=== PATIENT | male | born 1935 | race African-American/Black ===

== ENCOUNTER 2021-02-04 11:26 | Inpatient (IN) | payer OTHER ==
[~2021-02-04] VITALS: Ht 167.6 cm; Wt 59.9 kg
[2021-02-04] MEDS ORDERED: SODIUM CHLORIDE 0.9% 1,000 ML IV ONE (12:45)
[2021-02-04 13:46] LABS: CLARITY URINE CLEAR (CLEAR); COLOR URINE YELLOW (YELLOW); KETONES URINE NEGATIVE (NEGATIVE); LEUKOCYTE ESTERASE URINE NEGATIVE (NEGATIVE); NITRITE URINE NEGATIVE (NEGATIVE); OCCULT BLOOD URINE NEGATIVE (NEGATIVE); PROTEIN URINE NEGATIVE (NEGATIVE); SPECIFIC GRAVITY URINE 1.025 (1.005-1.030); UROBILINOGEN URINE 0.2 E.U./dL (0.2-1.0)
[2021-02-04 13:57] LABS: CANNABINOID URINE SCREEN PRESUMTIVE POSITIVE (NEGATIVE); OPIATES URINE SCREEN NEGATIVE (NEGATIVE)
[2021-02-04 13:58] LABS: *AMPHETAMINES SCREEN URINE NEGATIVE (NEGATIVE); *BARBITURATES SCREEN URINE NEGATIVE (NEGATIVE); PHENCYCLIDINE URINE SCREEN NEGATIVE (NEGATIVE)
[2021-02-04 13:59] LABS: *COCAINE SCREEN URINE NEGATIVE (NEGATIVE); METHADONE URINE SCREEN NEGATIVE (NEGATIVE)
[2021-02-04 14:04] LABS: *BENZODIAZEPINES SCREEN URINE NEGATIVE (NEGATIVE)
[2021-02-04 14:22] LABS: BASOPHILS % 0.9 % (0.0-2.0); EOSINOPHILS % 5.2 % (0.0-5.0); HEMATOCRIT. 33.9 % (42.0-52.0); LYMPHOCYTES % 9.3 % (20.0-50.0); MEAN CORPUSCULAR HEMOGLOBIN 29.4 pg (28.0-32.0); MEAN CORPUSCULAR VOLUME 90.3 fL (80.0-94.0); MEAN PLATELET VOLUME 9.1 fl (7.4-10.4); MONOCYTES % 8.6 % (2.0-8.0); PLATELET 334 x1000/uL (130-400); RED BLOOD CELL COUNT 3.75 mill/uL (4.7-6.1); RED CELL DISTRIBUTION WIDTH 14.6 % (11.6-14.6)
[2021-02-04 14:37] LABS: CHLORIDE 112 mEq/L (98-107)
[2021-02-04 14:41] LABS: ETHANOL BLOOD < 10 mg/dL
[2021-02-04 14:45] LABS: CREATINE KINASE 138 IU/L (39-308)
[2021-02-04] MEDS ORDERED: ZOLPIDEM TARTRATE 5MG TABLET PO PRN (18:30)
[2021-02-04] MEDS ORDERED: GUAIFENESIN 200MG/10ML SUGAR FREE UDC PO PRN (18:30)
[2021-02-04] MEDS ORDERED: NITROGLYCERIN 0.4MG TABLET SL SL PRN (18:30)
[2021-02-04] MEDS ORDERED: ACETAMINOPHEN 325MG TABLET PO PRN ×2 (18:30)
[2021-02-04] MEDS ORDERED: DOCUSATE SODIUM 100MG CAPSULE PO PRN (18:30)
[2021-02-04] MEDS ORDERED: IPRATROPIUM/ALBUTEROL 0.5-3(2.5)MG/3ML NEB NEB PRN (18:30)
[2021-02-04] MEDS ORDERED: ONDANSETRON HCL 4MG/2ML INJ IV PRN (18:30)
[2021-02-04] MEDS ORDERED: CLONIDINE 0.1MG TABLET PO PRN (18:30)
[2021-02-04] MEDS ORDERED: MAGNESIUM/ALUMINUM HYDROXIDE/SIMETHICONE 30ML UDC PO PRN (18:30)
[2021-02-04 19:34] LABS: FOLIC ACID (FOLATE) SERUM >20 ng/mL ng/mL (>5.38)
[2021-02-04 19:46] LABS: VITAMIN B12 SERUM 236 pg/mL (211-911)
[2021-02-04 20:30] VITALS: BP 154/87
[2021-02-04 20:45] VITALS: BP 154/87
[2021-02-04] MEDS ORDERED: FAMOTIDINE 20MG TABLET PO SCH (21:00)
[2021-02-04] MEDS: ENOXAPARIN 40MG/0.4ML SYR SUBCUT SCH (21:27)
[2021-02-04] MEDS: ASCORBIC ACID 500 MG TABLET PO SCH (21:27)
[2021-02-04] MEDS: FAMOTIDINE 20MG TABLET PO SCH (21:27)
[2021-02-04] MEDS ORDERED: DEXTROSE 50% WATER 50ML SYRINGE IV PRN (22:15)
[2021-02-04] MEDS: CEFTRIAXONE 1,000 MG in DEXTROSE 5% WATER 50 ML IV SCH (23:13)
[2021-02-04] MEDS ORDERED: PNEUMOCOCCAL 23-VAL P-SAC VAC 0.5 ML IM ONE (23:15)
[2021-02-04 23:54] LABS: CREATINE KINASE 145 IU/L (39-308)
[2021-02-04 23:56] LABS: CREATINE KINASE MB FRACTION 1.4 ng/mL (0.5-3.6)
[2021-02-04] MEDS ORDERED: ATOR-2 PO (23:58)
[2021-02-04] MEDS ORDERED: ASPI-1406 PO (23:58)
[2021-02-04] MEDS ORDERED: ERGO2000 PO (23:58)
[2021-02-04] MEDS ORDERED: FLUO10CA28 PO (23:58)
[2021-02-04] MEDS ORDERED: METO-385 PO (23:58)
[2021-02-04] MEDS ORDERED: CLOP75TA33 PO (23:58)
[2021-02-04] MEDS ORDERED: FINA5TAB11 PO (23:58)
[2021-02-04] MEDS ORDERED: LINA5TAB PO (23:58)
[2021-02-04] MEDS ORDERED: HYDR-4135 PO (23:58)
[2021-02-04] MEDS ORDERED: LISI-186 PO (23:58)
[2021-02-04] MEDS ORDERED: FOLI-43 PO (23:58)
[2021-02-04] MEDS ORDERED: DOXA1TAB PO (23:58)
[2021-02-04] MEDS ORDERED: AMLO10TA80 PO (23:58)
[2021-02-05] VITALS: BP_SYST 76
[2021-02-05] MEDS: AZITHROMYCIN 500 MG in DEXT 5% WATER 250 ML IV SCH ×2 (00:01→23:36)
[2021-02-05 04:00] VITALS: BP 144/48
[2021-02-05] MEDS: BLOOD SUGAR DIAGNOSTIC STRIP TEST SCH ×4 (06:40→20:28)
[2021-02-05] MEDS: INSULIN LISPRO 100 UNITS/ML SUBCUT SCH ×4 (06:40→20:28)
[2021-02-05 08:00] VITALS: BP 140/65
[2021-02-05] MEDS ORDERED: CEFTRIAXONE 1 G PREMIX 50 ML IV SCH (09:00)
[2021-02-05 09:36] LABS: BASOPHILS % 0.9 % (0.0-2.0); EOSINOPHILS % 9.4 % (0.0-5.0); HEMATOCRIT. 36.2 % (42.0-52.0); HEMOGLOBIN. 11.9 g/dL (14.0-18.0); LYMPHOCYTES % 15.3 % (20.0-50.0); MEAN CORPUSCULAR HEMOGLOBIN 29.7 pg (28.0-32.0); MEAN CORPUSCULAR VOLUME 90.2 fL (80.0-94.0); MEAN PLATELET VOLUME 9.4 fl (7.4-10.4); MONOCYTES % 11.2 % (2.0-8.0); NEUTROPHILS % 63.2 % (40.0-76.0); PLATELET 362 x1000/uL (130-400); RED BLOOD CELL COUNT 4.02 mill/uL (4.7-6.1); RED CELL DISTRIBUTION WIDTH 14.4 % (11.6-14.6)
[2021-02-05 09:45] LABS: CHLORIDE 108 mEq/L (98-107)
[2021-02-05] MEDS: ASCORBIC ACID 500 MG TABLET PO SCH ×2 (09:51→20:28)
[2021-02-05] MEDS: CHOLECALCIFEROL (D3) 1000 UNIT TABLET PO SCH (09:51)
[2021-02-05] MEDS: ZINC SULFATE 220 MG ( 50 ) CAPSULE PO SCH (09:51)
[2021-02-05 09:56] LABS: PHOSPHORUS 2.4 mg/dL (2.5-4.9)
[2021-02-05 10:01] LABS: CREATINE KINASE MB FRACTION < 1.0 ng/mL (0.5-3.6)
[2021-02-05 12:00] VITALS: BP 144/60
[2021-02-05] MEDS ORDERED: IOHEXOL-350 100 ML BOTTLE ONE (15:14)
[2021-02-05 16:00] VITALS: BP 142/83
[2021-02-05 20:00] VITALS: BP 100/59
[2021-02-05] MEDS: CEFTRIAXONE 1,000 MG in DEXTROSE 5% WATER 50 ML IV SCH (20:27)
[2021-02-05] MEDS: FAMOTIDINE 20MG TABLET PO SCH (20:28)
[2021-02-05] MEDS: ENOXAPARIN 40MG/0.4ML SYR SUBCUT SCH (20:28)
[2021-02-06] VITALS: BP 103/80
[2021-02-06 04:00] VITALS: BP 148/74
[2021-02-06] MEDS: BLOOD SUGAR DIAGNOSTIC STRIP TEST SCH ×3 (05:55→17:35)
[2021-02-06] MEDS: INSULIN LISPRO 100 UNITS/ML SUBCUT SCH ×3 (06:43→17:10)
[2021-02-06 08:00] VITALS: BP 117/67
[2021-02-06] MEDS: ZINC SULFATE 220 MG ( 50 ) CAPSULE PO SCH (08:47)
[2021-02-06] MEDS: ASCORBIC ACID 500 MG TABLET PO SCH (08:47)
[2021-02-06] MEDS: CHOLECALCIFEROL (D3) 1000 UNIT TABLET PO SCH (08:47)
[2021-02-06] MEDS ORDERED: POTASSIUM PHOS,M-BASIC-D-BASIC 15 MMOL in DEXT 5% WATER 245 ML IV SCH (09:00)
[2021-02-06 12:00] VITALS: BP 161/74
[2021-02-06 16:00] VITALS: BP 137/70
[2021-02-06 17:38] VITALS: BP 137/70
[2021-02-06] MEDS ORDERED: AZITHROMYCIN 500 MG TABLET PO SCH (21:00)
== END 2021-02-06 19:05 | disposition home or self-care (01) | DRG 871 ==
LOC: ER 11:26 → 7EST 17:34 → SUPCPDRO 18:13 → ENRESERV 19:08 → 7EST 20:21
PROVIDERS: ADMIT Internal Medicine; ATTEND Internal Medicine
DX: A41.9 Sepsis, unspecified organism (principal); N17.0 Acute kidney failure with tubular necrosis; R65.20 Severe sepsis without septic shock; I95.2 Hypotension due to drugs; F12.90 Cannabis use, unspecified, uncomplicated; E83.51 Hypocalcemia; I10 Essential (primary) hypertension; G90.8 Other disorders of autonomic nervous system; E11.9 Type 2 diabetes mellitus without complications; D64.9 Anemia, unspecified; T46.5X5A Adverse effect of other antihypertensive drugs, initial encounter; Y92.89 Other specified places as the place of occurrence of the external cause; Z79.4 Long term (current) use of insulin
CPT/HCPCS: 36415; 71045; 71275; 80053; 80305; 80320; 81003; 82550; 82553; 82607; 82746; 82962; 83036; 83540; 83550; 83605; 83735; 84100; 84132; 84443; 84484; 85025; 85379; 90732; 93005; 93306; 93970; 99285; J0456; J0696; J1650; J3490; J7030; J7060; Q9967; G0480

== ENCOUNTER 2022-01-21 22:38 | Emergency (ER) | payer MEDICAID, OTHER ==
[~2022-01-21] VITALS: Ht 165.1 cm; Wt 60.0 kg
[~2022-01-21 22:38] MED LIST: AMLO10TA80 PO; ASPI-1406 PO; ATOR-2 PO; CLOP75TA33 PO; DOXA1TAB PO; ERGO2000 PO; FINA5TAB11 PO; FLUO10CA28 PO; FOLI-43 PO; LINA5TAB PO
[2022-01-21] MEDS ORDERED: DEXTROMETHORPHAN (22:52)
[2022-01-21] MEDS ORDERED: TOPUD PO (22:52)
[2022-01-21] MEDS ORDERED: FLUO10CA28 PO (22:52)
[2022-01-21] MEDS ORDERED: LINA5TAB PO (22:52)
[2022-01-21] MEDS ORDERED: AZIT250T12 PO (22:52)
[2022-01-21] MEDS ORDERED: PROMETHAZINE (22:52)
[2022-01-22] MEDS ORDERED: SODIUM CHLORIDE 0.9% 1,000 ML IV ONE (00:30)
[2022-01-22 00:44] LABS: CHLORIDE 106 mEq/L (98-107)
[2022-01-22 00:45] LABS: BASOPHILS % 0.4 % (0.0-2.0); EOSINOPHILS % 5.8 % (0.0-5.0); HEMATOCRIT. 33.6 % (42.0-52.0); LYMPHOCYTES % 13.2 % (20.0-50.0); MEAN CORPUSCULAR HEMOGLOBIN 28.5 pg (28.0-32.0); MEAN CORPUSCULAR VOLUME 86.8 fL (80.0-94.0); MEAN PLATELET VOLUME 8.7 fl (7.4-10.4); MONOCYTES % 8.3 % (2.0-8.0); NEUTROPHILS % 72.3 % (40.0-76.0); PLATELET 488 x1000/uL (130-400); RED BLOOD CELL COUNT 3.87 mill/uL (4.7-6.1); RED CELL DISTRIBUTION WIDTH 16.8 % (11.6-14.6)
[2022-01-22 07:08] VITALS: BP 155/92
== END 2022-01-22 06:48 | disposition home or self-care (01) ==
LOC: ER 22:51
DX: U07.1 COVID-19 (principal); I10 Essential (primary) hypertension; E11.9 Type 2 diabetes mellitus without complications
CPT/HCPCS: 36415; 71045; 80053; 83690; 85025; 87426; 93005; 96360; 96361; 99285; C9803

== ENCOUNTER 2022-02-07 01:40 | Inpatient (IN) | payer OTHER, MEDICAID ==
[~2022-02-07] VITALS: Ht 165.1 cm; Wt 54.4 kg
[~2022-02-07 01:40] MED LIST changes: +AZIT250T12 PO; +DEXTROMETHORPHAN; +PROMETHAZINE; +TOPUD PO
[2022-02-07] MEDS ORDERED: IPRATROPIUM BROMIDE (0.02%) 0.5MG/2.5ML NEB HHN STA (02:07)
[2022-02-07] MEDS ORDERED: METHYLPREDNISOLONE SOD SUCC 125 MG/2 ML VIAL IV STA (02:07)
[2022-02-07 02:27] LABS: BASOPHILS % 0.7 % (0.0-2.0); EOSINOPHILS % 1.7 % (0.0-5.0); HEMATOCRIT. 34.4 % (42.0-52.0); HEMOGLOBIN. 11.2 g/dL (14.0-18.0); LYMPHOCYTES % 13.6 % (20.0-50.0); MEAN CORPUSCULAR HEMOGLOBIN 28.6 pg (28.0-32.0); MEAN CORPUSCULAR VOLUME 87.9 fL (80.0-94.0); MEAN PLATELET VOLUME 9.1 fl (7.4-10.4); PLATELET 468 x1000/uL (130-400); RED BLOOD CELL COUNT 3.92 mill/uL (4.7-6.1); RED CELL DISTRIBUTION WIDTH 18.2 % (11.6-14.6)
[2022-02-07] MEDS: ALBUTEROL (0.083%) 2.5MG/3ML NEB HHN SCH (02:33)
[2022-02-07 02:38] LABS: BG BASE EXCESS -3.1 mmol/L (-2.0-2.0); BG CARBOXYHEMOGLOBIN 0.3 % (0.5-1.5); BG DEOXYHEMOGLOBIN 2.1 % (0.0-5.0); BG FRACTION INSPIRED OXYGEN 28; BG METHEMOGLOBIN 0.3 % (0.0-1.5); BG OXYGEN SATURATION 97.9 % (92.0-98.5); BG OXYHEMOGLOBIN 97.3 % (94.0-97.0); BG PH 7.408 (7.350-7.450); BG PO2 109.1 mmHg (75.0-100.0); BG SAMPLE SITE RIGHT RADIAL; BG TOTAL HEMOGLOBIN 10.9 g/dL (12.0-18.0); BG VENT MODE NASAL CANNULA
[2022-02-07 02:52] LABS: CHLORIDE 109 mEq/L (98-107)
[2022-02-07] MEDS ORDERED: IOHEXOL-350 100 ML BOTTLE ONE (05:42)
[2022-02-07] MEDS ORDERED: METHYLPREDNISOLONE SOD SUCC 125 MG/2 ML VIAL IV NR (07:00)
[2022-02-07 10:00] VITALS: BP 144/90
[2022-02-07 10:30] VITALS: BP 159/91
[2022-02-07 12:00] VITALS: BP 151/89
[2022-02-07] MEDS ORDERED: ONDANSETRON HCL 4MG/2ML INJ IV PRN (13:30)
[2022-02-07] MEDS ORDERED: ACETAMINOPHEN 325MG TABLET PO PRN ×2 (13:30)
[2022-02-07] MEDS ORDERED: LEVOFLOXACIN 500MG PREMIX 100 ML IV SCH (13:30)
[2022-02-07] MEDS ORDERED: CLONIDINE 0.1MG TABLET PO PRN (13:30)
[2022-02-07] MEDS: CLOPIDOGREL 75MG TABLET PO SCH (14:49)
[2022-02-07] MEDS: METHYLPREDNISOLONE SOD SUCC 40 MG/ML VIAL IV SCH ×2 (14:49→21:24)
[2022-02-07] MEDS: ENOXAPARIN 40MG/0.4ML SYR SUBCUT SCH (14:49)
[2022-02-07] MEDS: ASPIRIN 81MG EC TABLET PO SCH (14:49)
[2022-02-07] MEDS: FLUOXETINE HCL 10 MG CAPSULE PO SCH (14:49)
[2022-02-07] MEDS: FOLIC ACID 1MG TABLET PO SCH (14:50)
[2022-02-07] MEDS: LEVOFLOXACIN 750MG PREMIX 150 ML IV SCH (15:07)
[2022-02-07 16:00] VITALS: BP 149/87
[2022-02-07 20:00] VITALS: BP 133/82
[2022-02-07] MEDS ORDERED: DEXTROSE 50% WATER 50ML SYRINGE IV PRN (21:00)
[2022-02-07] MEDS: INSULIN LISPRO 100 UNITS/ML SUBCUT SCH (21:25)
[2022-02-07] MEDS: FINASTERIDE 5MG TABLET PO SCH (21:25)
[2022-02-07] MEDS: BLOOD SUGAR DIAGNOSTIC STRIP TEST SCH (21:33)
[2022-02-07] MEDS: IPRATROPIUM/ALBUTEROL 0.5-3(2.5)MG/3ML NEB HHN PRN (22:50)
[2022-02-08] VITALS: BP 117/69
[2022-02-08 01:17] LABS: CREATINE KINASE MB FRACTION 4.1 ng/mL (0.5-3.6)
[2022-02-08 04:00] VITALS: BP 127/81
[2022-02-08] MEDS: BLOOD SUGAR DIAGNOSTIC STRIP TEST SCH ×4 (07:51→20:20)
[2022-02-08] MEDS: INSULIN LISPRO 100 UNITS/ML SUBCUT SCH ×4 (07:51→20:20)
[2022-02-08 08:00] VITALS: BP 143/80
[2022-02-08] MEDS: IPRATROPIUM/ALBUTEROL 0.5-3(2.5)MG/3ML NEB HHN PRN (08:24)
[2022-02-08] MEDS: METHYLPREDNISOLONE SOD SUCC 40 MG/ML VIAL IV SCH ×2 (09:29→20:16)
[2022-02-08] MEDS: FOLIC ACID 1MG TABLET PO SCH (09:29)
[2022-02-08] MEDS: CLOPIDOGREL 75MG TABLET PO SCH (09:29)
[2022-02-08] MEDS: AMLODIPINE 10MG TABLET PO SCH (09:30)
[2022-02-08] MEDS: ASPIRIN 81MG EC TABLET PO SCH (09:30)
[2022-02-08] MEDS: FLUOXETINE HCL 10 MG CAPSULE PO SCH (09:30)
[2022-02-08 12:00] VITALS: BP 136/81
[2022-02-08] MEDS: ENOXAPARIN 40MG/0.4ML SYR SUBCUT SCH (15:20)
[2022-02-08] MEDS: FUROSEMIDE 40MG/4ML VIAL IVP SCH ×2 (15:21→17:43)
[2022-02-08 16:00] VITALS: BP 140/88
[2022-02-08 20:00] VITALS: BP 133/70
[2022-02-08] MEDS: FINASTERIDE 5MG TABLET PO SCH (20:16)
[2022-02-08 20:47] LABS: HEMATOCRIT. 30.4 % (42.0-52.0); HEMOGLOBIN. 9.9 g/dL (14.0-18.0); MEAN CORPUSCULAR HEMOGLOBIN 28.1 pg (28.0-32.0); MEAN CORPUSCULAR VOLUME 86.6 fL (80.0-94.0); MEAN PLATELET VOLUME 8.8 fl (7.4-10.4); PLATELET 452 x1000/uL (130-400); RED BLOOD CELL COUNT 3.51 mill/uL (4.7-6.1); RED CELL DISTRIBUTION WIDTH 17.6 % (11.6-14.6)
[2022-02-08 22:02] LABS: PLATELET ESTIMATE INCREASED
[2022-02-09 00:05] VITALS: BP 119/68
[2022-02-09 04:00] VITALS: BP 134/74
[2022-02-09 06:44] LABS: HEMATOCRIT. 31.3 % (42.0-52.0); HEMOGLOBIN. 10.1 g/dL (14.0-18.0); MEAN CORPUSCULAR HEMOGLOBIN 27.9 pg (28.0-32.0); MEAN CORPUSCULAR VOLUME 86.5 fL (80.0-94.0); MEAN PLATELET VOLUME 9.3 fl (7.4-10.4); PLATELET 432 x1000/uL (130-400); RED BLOOD CELL COUNT 3.61 mill/uL (4.7-6.1); RED CELL DISTRIBUTION WIDTH 17.2 % (11.6-14.6)
[2022-02-09 07:27] LABS: CHLORIDE 106 mEq/L (98-107)
[2022-02-09] MEDS: INSULIN LISPRO 100 UNITS/ML SUBCUT SCH ×4 (08:10→20:57)
[2022-02-09] MEDS: BLOOD SUGAR DIAGNOSTIC STRIP TEST SCH ×4 (08:10→20:57)
[2022-02-09] MEDS: FUROSEMIDE 40MG/4ML VIAL IVP SCH ×2 (08:13→19:08)
[2022-02-09] MEDS: METHYLPREDNISOLONE SOD SUCC 40 MG/ML VIAL IV SCH ×2 (08:15→20:52)
[2022-02-09] MEDS: FOLIC ACID 1MG TABLET PO SCH (08:16)
[2022-02-09] MEDS: FLUOXETINE HCL 10 MG CAPSULE PO SCH (08:16)
[2022-02-09] MEDS: AMLODIPINE 10MG TABLET PO SCH (08:16)
[2022-02-09] MEDS: ENOXAPARIN 40MG/0.4ML SYR SUBCUT SCH (14:08)
[2022-02-09] MEDS: LEVOFLOXACIN 750MG PREMIX 150 ML IV SCH (16:05)
[2022-02-09 18:05] LABS: PLATELET ESTIMATE INCREASED
[2022-02-09 20:00] VITALS: BP 116/70
[2022-02-09] MEDS: FINASTERIDE 5MG TABLET PO SCH (20:52)
[2022-02-10 00:05] VITALS: BP 129/69
[2022-02-10 04:02] VITALS: BP 123/71
[2022-02-10] MEDS: FUROSEMIDE 40MG/4ML VIAL IVP SCH ×2 (05:19→10:11)
[2022-02-10] MEDS: BLOOD SUGAR DIAGNOSTIC STRIP TEST SCH ×4 (05:22→21:31)
[2022-02-10] MEDS: INSULIN LISPRO 100 UNITS/ML SUBCUT SCH ×4 (05:22→20:53)
[2022-02-10 06:46] LABS: HEMATOCRIT. 32.5 % (42.0-52.0); HEMOGLOBIN. 10.6 g/dL (14.0-18.0); MEAN CORPUSCULAR HEMOGLOBIN 27.8 pg (28.0-32.0); MEAN CORPUSCULAR VOLUME 85.7 fL (80.0-94.0); MEAN PLATELET VOLUME 9.2 fl (7.4-10.4); PLATELET 419 x1000/uL (130-400); RED CELL DISTRIBUTION WIDTH 17.3 % (11.6-14.6)
[2022-02-10 08:00] VITALS: BP 111/58
[2022-02-10] MEDS ORDERED: REGADENOSON 0.4 MG/5 ML IV ONE (10:00)
[2022-02-10] MEDS: FOLIC ACID 1MG TABLET PO SCH (10:09)
[2022-02-10] MEDS: METHYLPREDNISOLONE SOD SUCC 40 MG/ML VIAL IV SCH ×2 (10:09→20:43)
[2022-02-10] MEDS: AMLODIPINE 10MG TABLET PO SCH (10:09)
[2022-02-10] MEDS: FLUOXETINE HCL 10 MG CAPSULE PO SCH (10:09)
[2022-02-10 12:00] VITALS: BP 130/65
[2022-02-10] MEDS: ENOXAPARIN 40MG/0.4ML SYR SUBCUT SCH (14:09)
[2022-02-10 16:00] VITALS: BP 123/69
[2022-02-10 20:00] VITALS: BP 117/55
[2022-02-10 20:22] LABS: PLATELET ESTIMATE INCREASED
[2022-02-10] MEDS: FINASTERIDE 5MG TABLET PO SCH (20:43)
[2022-02-11] VITALS: BP 115/60
[2022-02-11 04:00] VITALS: BP 131/77
[2022-02-11 06:35] LABS: HEMATOCRIT. 35.2 % (42.0-52.0); HEMOGLOBIN. 11.6 g/dL (14.0-18.0); MEAN CORPUSCULAR HEMOGLOBIN 28.3 pg (28.0-32.0); MEAN CORPUSCULAR VOLUME 85.7 fL (80.0-94.0); MEAN PLATELET VOLUME 9.2 fl (7.4-10.4); PLATELET 455 x1000/uL (130-400); RED BLOOD CELL COUNT 4.11 mill/uL (4.7-6.1); RED CELL DISTRIBUTION WIDTH 17.1 % (11.6-14.6)
[2022-02-11] MEDS: BLOOD SUGAR DIAGNOSTIC STRIP TEST SCH ×2 (07:40→12:40)
[2022-02-11] MEDS: INSULIN LISPRO 100 UNITS/ML SUBCUT SCH ×2 (07:59→13:10)
[2022-02-11 08:00] VITALS: BP 123/72
[2022-02-11] MEDS: FOLIC ACID 1MG TABLET PO SCH (09:00)
[2022-02-11] MEDS: AMLODIPINE 10MG TABLET PO SCH (09:00)
[2022-02-11] MEDS: FLUOXETINE HCL 10 MG CAPSULE PO SCH (09:00)
[2022-02-11] MEDS: FUROSEMIDE 40MG/4ML VIAL IVP SCH (09:04)
[2022-02-11] MEDS: METHYLPREDNISOLONE SOD SUCC 40 MG/ML VIAL IV SCH (09:05)
[2022-02-11 10:13] LABS: INR 1.1; PROTHROMBIN TIME 11.9 sec (9.6-11.0)
[2022-02-11] MEDS ORDERED: SODIUM BICARBONATE 4% (2.4MEQ) 5ML VIAL IV ONE (10:37)
[2022-02-11] MEDS ORDERED: REGADENOSON 0.4 MG/5 ML IV ONE (11:49)
[2022-02-11 13:25] VITALS: BP 132/59
[2022-02-11 13:34] LABS: PLATELET ESTIMATE INCREASED
[2022-02-11] MEDS: ENOXAPARIN 40MG/0.4ML SYR SUBCUT SCH (14:37)
[2022-02-11] MEDS: LEVOFLOXACIN 750MG PREMIX 150 ML IV SCH (15:00)
[2022-02-11 15:02] LABS: BG BASE EXCESS 1.5 mmol/L (-2.0-2.0); BG CARBOXYHEMOGLOBIN 0.4 % (0.5-1.5); BG DEOXYHEMOGLOBIN 5.2 % (0.0-5.0); BG FRACTION INSPIRED OXYGEN 21; BG HCO3 ACT 26.3 mmol/L (22.0-26.0); BG METHEMOGLOBIN 0.3 % (0.0-1.5); BG OXYGEN SATURATION 94.8 % (92.0-98.5); BG OXYHEMOGLOBIN 94.1 % (94.0-97.0); BG PCO2 42.1 mmHg (35.0-45.0); BG PH 7.414 (7.350-7.450); BG PO2 77.3 mmHg (75.0-100.0); BG SAMPLE SITE RIGHT BRACHIAL; BG TOTAL HEMOGLOBIN 13.8 g/dL (12.0-18.0); BG VENT MODE ROOM AIR
[2022-02-11 16:00] VITALS: BP 122/56
[2022-02-11 16:31] VITALS: BP 122/56
== END 2022-02-11 17:30 | disposition home or self-care (01) | DRG 291 ==
LOC: ER 01:40 → 7EST 04:40 → EDBEDREQSVC 04:46 → EDBEDREQ 04:46 → EDBEDREQTM 04:46 → 7WST 10:07
PROVIDERS: ADMIT Internal Medicine; ATTEND Internal Medicine
PROC: 0W9B3ZZ Drainage of Left Pleural Cavity, Percutaneous Approach (ICD-10-PCS; principal; 2022-02-11)
DX: I11.0 Hypertensive heart disease with heart failure (principal); I50.33 Acute on chronic diastolic (congestive) heart failure; I42.9 Cardiomyopathy, unspecified; F03.90 Unspecified dementia, unspecified severity, without behavioral disturbance, psychotic disturbance, mood disturbance, and anxiety; I08.3 Combined rheumatic disorders of mitral, aortic and tricuspid valves; E78.00 Pure hypercholesterolemia, unspecified; N40.1 Benign prostatic hyperplasia with lower urinary tract symptoms; D64.9 Anemia, unspecified; R35.0 Frequency of micturition; E11.9 Type 2 diabetes mellitus without complications; Z20.822 Contact with and (suspected) exposure to COVID-19
CPT/HCPCS: 32555; 36415; 36600; 71045; 71275; 76604; 78452; 80048; 80053; 80061; 82375; 82553; 82805; 82962; 83036; 83605; 83615; 83735; 83880; 84484; 85025; 85379; 87426; 88108; 93005; 93017; 93306; 94640; 94644; 99291; A9500; C9803; J1650; J1815; J1940; J1956; J2785; J2920; J2930; J3490; Q9967